=== PATIENT | female | born 2000 | race Caucasian/White ===

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

== ENCOUNTER → 2020-01-25 11:09 | Outpatient (BNVA) | payer OTHER, SELFPAY | PROVIDERS: PCP Family Medicine; Visit Provider Nurse Practitioner | DX: J02.9 Acute pharyngitis, unspecified (principal); R07.0 Pain in throat; Z20.828 Contact with and (suspected) exposure to other viral communicable diseases | CPT/HCPCS: 87071; 87635; 87880 ==

== ENCOUNTER → 2020-05-04 10:30 | Outpatient (BNVA) | payer OTHER, SELFPAY | PROVIDERS: PCP Nurse Practitioner Family; Referring Provider Nurse Practitioner; Visit Provider Internal Medicine | DX: E06.3 Autoimmune thyroiditis (principal); H93.A9 Pulsatile tinnitus, unspecified ear; R13.10 Dysphagia, unspecified | CPT/HCPCS: 84439; 84443; 99204 ==

== ENCOUNTER 2020-07-27 12:49 | Outpatient (CLI) | payer OTHER, SELFPAY ==
--- NOTE | 2020-07-27 12:56 | MR_ITS ---
WS: [id number] MRI BRAIN WITH HIGH-RESOLUTION IMAGING THROUGH THE INTERNAL AUDITORY CANALS WITHOUT AND WITH CONTRAST HISTORY: TINNITUS-RIGHT EAR COMPARISON: CT head 05/18/2020 TECHNIQUE: Multiplanar, multisequence imaging is performed through the brain. Additional 3 mm imaging performed in multiple planes through the internal auditory canal. Postcontrast imaging with 20 ml's of MultiHance. No acute intracranial hemorrhage, midline shift, edema or mass effect. No acute infarct or significant chronic white matter ischemic disease. No prior infarcts. No signal a bnormality. No hemorrhage. Ventricles and extra-axial spaces are normal. No inferior displacement of cerebellar tonsils. Clivus and pituitary gland are normal. Small venous angioma along the inferior RIGHT cerebellum. Internal and external auditory canals: Unremarkable. Cranial nerves VII and VIII complexes: Unremarkable. No enhancement or mass. Cerebellopontine angles: Normal. Paranasal sinuses: Normal. Mastoid air cells: Normal. Calvarium and scalp: Normal. Visualized [place] and dural venous sinuses demonstrate no abnormality. MR/MR iac's wo/w con* [id number] IMPRESSION: 1. No acute infarct or mass. 2. No enhancement along the internal or external auditory canals. 3. RIGHT cerebellar venous angioma.
--- NOTE | 2020-07-27 12:56 | MR_ITS ---
WS: [id number] MR VENOGRAPHY HEAD 3-D noncontrast imaging performed through the cerebral veins. All imaging is reviewed. HISTORY: Tinnitus, right EAR COMPARISON: None available. Excellent demonstration of the dural venous sinuses and cerebral veins. There are no filling defects to suggest acute or chronic thrombus. Mild loss of signal from the transition between the transverse sinuses and the sigmoid sinuses due to change in director and slow flow. Flow artifact in the jugula r veins. Superior sagittal sinus, straight sinus and transverse sinuses are all patent with no signif icant thrombus. MR/[place] [id number] IMPRESSION: Normal MR venogram cerebral veins.
[2020-07-27] MEDS: gadobenate dimeglumine 20 mL vial IV (13:58)
== END 2020-07-27 12:50 | disposition home or self-care (01) ==
PROVIDERS: PCP Nurse Practitioner Family; Visit Provider Otolaryngology
DX: H91.91 Unspecified hearing loss, right ear (principal); H93.11 Tinnitus, right ear; Q28.3 Other malformations of cerebral vessels
CPT/HCPCS: 70544; 70553; A9577

== ENCOUNTER → 2020-09-25 09:22 | Outpatient (BNVA) | payer OTHER, SELFPAY | PROVIDERS: PCP Nurse Practitioner Family; Visit Provider Nurse Practitioner | DX: R00.0 Tachycardia, unspecified (principal); Z11.3 Encounter for screening for infections with a predominantly sexual mode of transmission | CPT/HCPCS: 80053; 87491; 87591 ==

== ENCOUNTER → 2021-07-22 17:05 | Outpatient (BNVA) | payer OTHER, SELFPAY | PROVIDERS: PCP Nurse Practitioner Family; Visit Provider Nurse Practitioner | DX: E06.3 Autoimmune thyroiditis (principal) | CPT/HCPCS: 80053; 80061; 84439; 84443; 84481 ==

== ENCOUNTER → 2022-08-11 13:18 | Outpatient (BNVA) | payer OTHER, SELFPAY | PROVIDERS: PCP Family Medicine; Visit Provider Nurse Practitioner Family | DX: E04.9 Nontoxic goiter, unspecified (principal); E66.9 Obesity, unspecified | CPT/HCPCS: 80053; 82306; 82607; 85025; 86376 ==

== ENCOUNTER → 2024-01-01 09:25 | Outpatient (BNVA) | payer BC, SELFPAY | PROVIDERS: PCP Family Medicine; Visit Provider Clinical Nurse Specialist Adult Health | DX: E06.3 Autoimmune thyroiditis (principal); E66.9 Obesity, unspecified | CPT/HCPCS: 80053; 80061; 83036; 83525; 84443; 85025 ==